=== PATIENT | female | born 2000 | race Two or more races ===

== ENCOUNTER 2019-05-05 23:22 | Emergency (ER) | payer MEDICAID, OTHER ==
[~2019-05-05] VITALS: Ht 170.2 cm; Wt 49.0 kg
--- NOTE | 2019-05-05 23:34 | NUR ---
PT BIBS. C/O "HAVING COUGH AND CONGESTION X7 DAYS. +PHLEGM. +FEVER" -SOB AOX4. VSS. AMBULATORY. WHEEZING UPON AUSCULTATION NOTED. PT CONNECTED TO THE MONITOR AND POX.
[2019-05-05] MEDS ORDERED: predniSONE 20 MG TABLET ONE (23:56)
[2019-05-06] MEDS ORDERED: IPRATROPIUM NEB FS 0.5 MG/2.5 ML AMPUL.NEB NEB ONE
[2019-05-06] MEDS ORDERED: ALBUTEROL FS 2.5 MG/3 ML VIAL.NEB NEB ONE
[2019-05-06] MEDS ORDERED: ALBUTEROL FS 2.5 MG/3 ML VIAL.NEB ONE
[2019-05-06] MEDS ORDERED: predniSONE 20 MG TABLET PO ONE
[2019-05-06] MEDS ORDERED: IPRATROPIUM NEB FS 0.5 MG/2.5 ML AMPUL.NEB ONE
--- NOTE | 2019-05-06 00:01 | NUR ---
RT AT BEDSIDE FOR BREATHING TREATMENT
[2019-05-06] MEDS ORDERED: ACETAMINOPHEN 325 MG TABLET ONE (00:24)
[2019-05-06] MEDS ORDERED: ACETAMINOPHEN 325 MG TABLET PO ONE (00:30)
[2019-05-06] MEDS ORDERED: AZITHROMYCIN 250 MG TABLET PO ONE (01:30)
[2019-05-06] MEDS ORDERED: CLARITHROMYCIN 500 MG TABLET PO ONE (01:30)
--- NOTE | 2019-05-06 01:44 | NUR ---
Patient discharged to home in stable condition. Written and verbal after care instructions given. Patient verbalizes understanding of instruction.
[2019-05-06 01:45] VITALS: BP 112/87
== END 2019-05-06 01:45 | disposition home or self-care (01) ==
LOC: ER 23:27
DX: J45.909 Unspecified asthma, uncomplicated (principal)
CPT/HCPCS: 71045; 94640; 99283; J7512